=== PATIENT | male | born 1970 | race Caucasian/White ===

== ENCOUNTER 2018-03-24 08:39 | Day surgery (SDC) | payer BC ==
[2018-03-24] VITALS (8 sets, daily range): BP systolic 111–132; BP diastolic 61–70
[~2018-03-24] VITALS: Ht 175.3 cm; Wt 71.2 kg
--- NOTE | 2018-03-24 07:06 | Anethesia Preoperative Eval ---
Anesthesia Pre-op PMH/ROS General Date of Evaluation: Mar 24, 2018 Time of Evaluation: 07:05 Anesthesiologist: morro ASA Score: ASA 2 Mallampati Score Class I : Soft palate, uvula, fauces, pillars visible Class II: Soft palate, uvula, fauces visible Class III: Soft palate, base of uvula visible Class IV: Only hard plate visible Mallampati Classification: Class II Surgeon: afsaneh Diagnosis: colon screening Surgical Procedure: colonoscopy Anesthesia History: none Social History: alcohol use Family History: no anesthesia problems Allergies: Uncoded Allergies: APPLE/PEAR PEELS (Allergy, Intermediate, 03/24/18) ITCHING Medications: see eMAR Patient NPO?: Yes Past Medical History Cardiovascular: 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 Exam Physician Exam Constitutional: NAD Neurologic: CN 2-12 intact Cardiovascular: RRR Respiratory: CTA Gastrointestinal: S/NT/ND Airway Exam Mallampati Score: Class II MO: full Neck: flexible TMD: 2fb ROM: full Anesthesia Pre-op A/P Risk Assessment & Plan Assessment: asa2 Plan: mac Status Change Before Surgery: No Pre-Antibiotics Drug: Aria Mai MD Mar 24, 2018 07:06
--- NOTE | 2018-03-24 08:55 | Short Stay Surgery H&P ---
History of Present Illness History of Present Illness Chief Complaint Patient is for screening colon via colonoscopy HPI Andrews Kimball is a 48 year old male who was admitted on for Colon Screening Review of Systems Cardiovascular: Reports: no symptoms Respiratory: Reports: no symptoms Skeletal: Reports: no symptoms Gastrointestinal: Reports: no symptoms Genitourinary: Reports: no symptoms Endocrine: Reports: no symptoms Hematologic: Reports: no symptoms Physical Exam Skin: normal HENT: normal Heart: normal Lungs: normal Abdomen: normal Extremities: normal Genitourinary: normal Plan Plan of Care Total colonoscopy anad possible biopsy Preop Interventions none. Summary of Findings See the reports Attestation Are the patient's medical conditions optimized for surgery? Attestation Response: yes Adolph Silva MD Mar 24, 2018 08:55
--- NOTE | 2018-03-24 08:56 | Pre-Procedure Note/Attestation ---
Pre-Procedure Note/Attestation Complete Prior to Procedure Planned Procedure: left Procedure Narrative: Examination of the colon for cancer/polyps via endoscopy Indications for Procedure Pre-Operative Diagnosis: R/O colon polyps/cancer Attestation I attest that I discussed the nature of the procedure; its benefits; risks and complications; and alternatives (and the risks and benefits of such alternatives ), prior to the procedure, with the patient (or the patient's legal customer counter representative). I attest that, if there was a reasonable possibility of needing a blood transfusion, the patient (or the patient's legal customer counter representative) was given the [facility] standardized written summary, pursuant to the [place] Blood Safety Act ([place] Health and Safety Code # 1645, as amended). I attest that I re-evaluated the patient just prior to the surgery and that there has been no change in the patient's H&P, except as documented below: Adolph Silva MD Mar 24, 2018 08:56
[2018-03-24] MEDS ORDERED: Propofol 200mg/20ml IV ONE (09:30)
[2018-03-24] MEDS ORDERED: LR 1000ml ONE (09:30)
[2018-03-24] MEDS ORDERED: Lidocaine 1% MPF 10mg/ml 5ml ONE (09:30)
[2018-03-24] MEDS ORDERED: ASPIR 8181 MG ORAL (09:43)
[2018-03-24] MEDS ORDERED: ZYRTEC10 MG ORAL (09:43)
[2018-03-24] MEDS ORDERED: MELATONIN2.5 MG ORAL (09:43)
--- NOTE | 2018-03-24 10:11 | Endoscopy Procedure Note ---
Endoscopy Procedure Note General Indication for Procedure: Screening colon Procedures Performed: colonoscopy - Completely normal total colonoscopy. Specimen: yes Pt Tolerated Procedure Well: Yes Estimated Blood Loss: none Anesthesia Anesthesiologist: Dr. Azael Dow Anesthesia: moderate sedation Medications Medication Given: see anesthesia record Inserted Devices Implant(s) used?: No Quality Quality of Bowel Preparation: Poor Did scope reach the cecum?: Yes Was there any complications?: No GI Core Measures 50 yrs or older w/o bx or poly: No 10yrs. F/U not recommended: Yes If not recommended, why?: 10 yrs. F/U needed: Yes 18 years or older w/prev. colo: No Med reason:<3 yrs.: System Reason:<3 yrs.: Adolph Silva MD Mar 24, 2018 10:11
--- NOTE | 2018-03-24 10:13 | Discharge Instructions ---
Discharge Instructions Discharge Instructions Follow up with: Visit the doctor in office after 2 weeks For Congestive Heart Failure Reminder Report to your physician any weight gain of 5 pounds or more in one week. Adolph Silva MD Mar 24, 2018 10:13
--- NOTE | 2018-03-24 10:48 | Immediate Post-Op Evaluation ---
Immediate Post-Op Evalulation Immediate Post-Op Evalulation Procedure: colonoscopy Date of Evaluation: Mar 24, 2018 Time of Evaluation: 10:31 IV Fluids: 200ml lr Blood Products: none Estimated Blood Loss: negligible Blood Pressure Systolic: 112 Blood Pressure Diastolic: 62 Pulse Rate: 53 Respiratory Rate: 18 O2 Sat by Pulse Oximetry: 99 Temperature (Fahrenheit): 97.2 Pain Score (1-10): 0 Nausea: No Vomiting: No Complications none Patient Status: awake, reacts, patent Hydration Status: adequate Drug: Aria Mai MD Mar 24, 2018 10:48
--- NOTE | 2018-03-24 10:50 | 48 Hour Post Anesthesia Eval ---
Post Anesthesia Evaluation Procedure: colonoscopy Date of Evaluation: Mar 24, 2018 Time of Evaluation: 10:33 Blood Pressure Systolic: 111 0: 66 Pulse Rate: 52 Respiratory Rate: 18 Temperature (Fahrenheit): 97.2 O2 Sat by Pulse Oximetry: 99 Airway: patent Nausea: No Vomiting: No Pain Intensity: 0 Hydration Status: adequate Cardiopulmonary Status: stable Mental Status/LOC: patient returned to baseline Post-Anesthesia Complications: none Follow-up care needed: N/A Aria Colindres MD Mar 24, 2018 10:50
[2018-03-24] MEDS ORDERED: LR 1000ml 1,000 ML IVLG SCH (10:51)
[2018-03-24] MEDS ORDERED: fentaNYL 100 mcg/2 mL IV PRN (11:00)
[2018-03-24] MEDS ORDERED: DiphenhydrAMINE 50mg/ml Inj IVP PRN (11:00)
[2018-03-24] MEDS ORDERED: Atropine Inj 1mg/10ml Syr IV PRN (11:00)
[2018-03-24] MEDS ORDERED: Midazolam 2mg/2ml Inj IVP PRN (11:00)
--- NOTE | 2018-03-24 15:00 | Operative Note - Dictated ---
DATE OF OPERATION: 03/24/2018 SURGEON: Adolph Silva M.D. PROCEDURE: Total colonoscopy. PREOPERATIVE DIAGNOSIS: Screening colonoscopy. POSTOPERATIVE DIAGNOSIS: Normal total colonoscopy up to the base of the cecum as examined with poor colonic preparation. MEDICATION USED: Per Dr. Morris, anesthesiologist. INSTRUMENT: GIF Olympus video colonoscope. DESCRIPTION OF PROCEDURE: The patient after arriving at endoscopy unit, was told about risks and benefits of the procedure, which he accepted and signed informed consent. At this time, he was put on the left lateral decubitus position. After adequate IV sedation, the scope was gently passed through the anal area and careful examination of this section did not reveal any pathology in the rectum as the scope was also retroflexed. At this time, the scope was gradually passed through somewhat redundant left colon reaching to the splenic flexure, transverse colon, hepatic flexure, and finally guided into the right colon. There was no any abnormality such as polyps, tumors, inflammatory process, ulceration etc. was found and basically total colonoscopy was normal; however, it has to be mentioned that colon cleanup was poor and there was a stool form in the colon particularly on the right side, which made the examination difficult. However, there was no any major pathology such as visible polyps found at this point. Finally after reaching to the base of the cecum, within 6 minutes the scope was gradually pulled out and further examination did not reveal any evidence of pathology. The patient tolerated the procedure well and left the endoscopy room in a good condition. Adolph Silva M.D. DR: HEBER JOB#: [id number] CC:
== END 2018-03-24 11:25 | disposition home or self-care (01) ==
LOC: GAS 08:39
DX: Z12.11 Encounter for screening for malignant neoplasm of colon (principal); I34.8 Other nonrheumatic mitral valve disorders; Z91.018 Allergy to other foods; Z98.52 Vasectomy status
CPT/HCPCS: 45378; J2704; 94003; 94150